=== PATIENT | female | born 1960 | race Caucasian/White ===

== ENCOUNTER → 2016-09-27 | Outpatient (CLI) | payer OTHER ==
[~2016-09-27] MED LIST: CETI10CA PO
== END | disposition home or self-care (01) ==
LOC: EDSTATUS 09-25 14:27 → ROC 10:00
PROVIDERS: ATTEND Radiology Radiation Oncology
DX: C50.912 Malignant neoplasm of unspecified site of left female breast (principal)
CPT/HCPCS: 99213; G0463

== ENCOUNTER 2016-10-19 11:33 | Emergency (ER) | payer OTHER ==
[~2016-10-19] VITALS: Ht 160 cm; Wt 103.1 kg
[2016-10-19 11:39] VITALS: BP 156/97
[2016-10-19] MEDS ORDERED: HYDROmorphone 1 MG/ML, 1ML ONE ×2 (12:22→14:14)
[2016-10-19] MEDS ORDERED: DIPHENHYDRAMINE 50 MG CAPSULE ONE (12:23)
[2016-10-19] MEDS ORDERED: ONDANSETRON ODT 4 MG ONE (12:23)
[2016-10-19] MEDS ORDERED: DIPHENHYDRAMINE 25 MG CAPSULE PO ONE (12:30)
[2016-10-19] MEDS ORDERED: HYDROmorphone 1 MG/ML, 1ML IM ONE ×2 (12:30→14:30)
[2016-10-19] MEDS ORDERED: ONDANSETRON ODT 4 MG PO ONE (12:30)
[2016-10-22] MEDS ORDERED: CA C1TAB60 PO (15:48)
[2016-10-22] MEDS ORDERED: PENI500T PO (15:49)
== END 2016-10-19 14:26 | disposition home or self-care (01) ==
LOC: ED 14:18
DX: S42.242A 4-part fracture of surgical neck of left humerus, initial encounter for closed fracture (principal); S42.252A Displaced fracture of greater tuberosity of left humerus, initial encounter for closed fracture; W01.0XXA Fall on same level from slipping, tripping and stumbling without subsequent striking against object, initial encounter; Y93.89 Activity, other specified; Y92.89 Other specified places as the place of occurrence of the external cause; Y99.8 Other external cause status
CPT/HCPCS: 73000; 73030; 73060; 96372; 99284; J1170; Q0162; Q0163

== ENCOUNTER 2016-10-21 12:49 | Emergency (ER) | payer OTHER ==
[~2016-10-21] VITALS: Ht 160 cm; Wt 105.0 kg
[2016-10-21] MEDS ORDERED: LETR2.5T PO (14:39)
[2016-10-21] MEDS ORDERED: HYDROmorphone 1 MG/ML, 1ML IM ONE (15:00)
[2016-10-21] MEDS ORDERED: HYDROmorphone 1 MG/ML, 1ML ONE (15:08)
[2016-10-21] MEDS ORDERED: ONDANSETRON ODT 4 MG ONE (15:28)
[2016-10-21] MEDS ORDERED: ONDANSETRON ODT 4 MG PO ONE (15:30)
[2016-10-21 15:57] VITALS: BP 157/83
[2016-10-22] MEDS ORDERED: CA C1TAB60 PO (15:48)
[2016-10-22] MEDS ORDERED: PENI500T PO (15:49)
== END 2016-10-21 16:13 | disposition home or self-care (01) ==
LOC: ED 14:21
DX: S42.352A Displaced comminuted fracture of shaft of humerus, left arm, initial encounter for closed fracture (principal); W01.0XXA Fall on same level from slipping, tripping and stumbling without subsequent striking against object, initial encounter; Y93.89 Activity, other specified; Y92.009 Unspecified place in unspecified non-institutional (private) residence as the place of occurrence of the external cause; Y99.9 Unspecified external cause status; K08.89 Other specified disorders of teeth and supporting structures
CPT/HCPCS: 96372; 99283; J1170; Q0162

== ENCOUNTER → 2017-05-06 | Outpatient (CLI) | payer OTHER ==
[~2017-05-06] MED LIST changes: +AMOX1TAB64 PO; +CA C1TAB60 PO; +IBUP-1221 PO; +LETR2.5T PO; +PENI500T PO
== END | disposition home or self-care (01) ==
LOC: CFH 09:17
PROVIDERS: ATTEND Radiology Radiation Oncology
DX: Z12.31 Encounter for screening mammogram for malignant neoplasm of breast (principal)
CPT/HCPCS: 77063; G0202

== ENCOUNTER 2018-06-11 08:56 | Outpatient (CLI) | payer OTHER | END 2018-06-11 23:59 | disposition home or self-care (01) | LOC: CFH 08:56 | PROVIDERS: ATTEND Internal Medicine Hematology & Oncology | DX: Z12.31 Encounter for screening mammogram for malignant neoplasm of breast (principal) | CPT/HCPCS: 77063; 77067 ==

== ENCOUNTER 2019-06-12 09:18 | Outpatient (CLI) | payer OTHER | END 2019-06-12 23:59 | disposition home or self-care (01) | LOC: CFH 09:18 | PROVIDERS: ATTEND Internal Medicine Hematology & Oncology | DX: Z12.31 Encounter for screening mammogram for malignant neoplasm of breast (principal); N64.89 Other specified disorders of breast | CPT/HCPCS: 77063; 77067 ==

== ENCOUNTER 2020-09-05 08:16 | Outpatient (CLI) | payer OTHER ==
[~2020-09-05 08:16] MED LIST changes: -LETR2.5T PO; +LETR2.5T3 PO
== END 2020-09-05 23:59 | disposition home or self-care (01) ==
LOC: CFH 08:16
PROVIDERS: ATTEND Nurse Practitioner Family
DX: Z12.31 Encounter for screening mammogram for malignant neoplasm of breast (principal); N63.21 Unspecified lump in the left breast, upper outer quadrant; R92.1 Mammographic calcification found on diagnostic imaging of breast
CPT/HCPCS: 77063; 77067

== ENCOUNTER → 2020-11-11 | Outpatient (CLI) | payer OTHER | END | disposition home or self-care (01) | LOC: CFH 14:18 | PROVIDERS: ATTEND Nurse Practitioner Family | DX: N64.4 Mastodynia (principal); Z85.3 Personal history of malignant neoplasm of breast | CPT/HCPCS: 76642; 77061; 77065; G0279 ==